=== PATIENT | male | born 1965 | race Caucasian/White ===

== ENCOUNTER → 2017-04-12 | Day surgery (SDC) | payer BC ==
[~2017-04-12] MED LIST: ARIMIDEX1 M1 PO; DEPO-TESTO200 MG/1 M IM; HCG PO; LOSARTAN-HCTZ1 EAC1 PO; NORVASC10 MG PO; VITAMIN D1000 UNIT PO
[2017-04-12 10:32] LABS: ALBUMIN 3.9 gm/dL (3.5-5.0); ANION GAP 9.7 (10.0-19.0); BLOOD UREA NITROGEN 14 mg/dL (6-24); CALCIUM 8.6 mg/dL (8.5-10.5); CHLORIDE 107 mMol/L (96-110); CO2 28 mMol/L (22-32); CREATININE 1.1 mg/dL (0.6-1.3); ESTIMATED GFR (MDRD EQUATION) > 60; PHOSPHORUS 2.1 mg/dL (2.5-4.9); POTASSIUM 3.7 mMol/L (3.7-5.1); SODIUM 141 mMol/L (135-145)
== END ==
LOC: GOPD 04-05 → GLAB
PROVIDERS: Orthopaedic Surgery Orthopaedic Surgery of the Spine
DX: M48.02 Spinal stenosis, cervical region (principal); M99.81 Other biomechanical lesions of cervical region; M50.13 Cervical disc disorder with radiculopathy, cervicothoracic region; Z79.899 Other long term (current) drug therapy
CPT/HCPCS: A9577; J2001; J7030